=== PATIENT | male | born 1980 | race Caucasian/White ===

== ENCOUNTER 2022-09-22 22:14 | Emergency (ER) | payer BC ==
[~2022-09-22] VITALS: Ht 175.3 cm; Wt 86.6 kg
[2022-09-22 22:30] VITALS: BP 157/100; TEMP 98.1; O2SAT 98
== END 2022-09-22 23:01 | disposition home or self-care (01) ==
LOC: ER 22:21
DX: Z71.1 Person with feared health complaint in whom no diagnosis is made (principal); Z88.0 Allergy status to penicillin